=== PATIENT | female | born 1995 | race African-American/Black ===

== ENCOUNTER 2017-05-09 09:47 | Emergency (ER) | payer MEDICAID, OTHER ==
[~2017-05-09] VITALS: Ht 144.8 cm; Wt 52.1 kg
[2017-05-09] MEDS ORDERED: ACETAMINOPHEN 325MG TABLET ONE (10:50)
[2017-05-09] MEDS ORDERED: ACETAMINOPHEN 500MG TABLET PO ONE (12:45)
[2017-05-09 13:46] VITALS: BP 114/49
[2017-05-09 13:58] LABS: KETONES URINE NEGATIVE (NEGATIVE); LEUKOCYTE ESTERASE URINE TRACE (NEGATIVE); NITRITE URINE NEGATIVE (NEGATIVE); OCCULT BLOOD URINE TRACE (NEGATIVE); PROTEIN URINE TRACE (NEGATIVE); SPECIFIC GRAVITY URINE 1.017 (1.005-1.030)
[2017-05-09 14:03] LABS: CLARITY URINE CLEAR (CLEAR); COLOR URINE YELLOW (YELLOW)
== END 2017-05-09 14:58 | disposition home or self-care (01) ==
LOC: ER 10:51
DX: J06.9 Acute upper respiratory infection, unspecified (principal); I10 Essential (primary) hypertension
CPT/HCPCS: 81001; 81025; 87804; 99284

== ENCOUNTER 2017-07-15 07:09 | Emergency (ER) | payer MEDICAID, OTHER ==
[~2017-07-15] VITALS: Ht 157.5 cm; Wt 52.0 kg
[2017-07-15 07:53] VITALS: BP 120/73
[2017-07-15] MEDS ORDERED: IBUPROFEN 400MG TABLET PO ONE (08:00)
== END 2017-07-15 09:02 | disposition home or self-care (01) ==
LOC: ER 07:18
DX: S93.401A Sprain of unspecified ligament of right ankle, initial encounter (principal); X50.1XXA Overexertion from prolonged static or awkward postures, initial encounter; Y93.01 Activity, walking, marching and hiking; Y92.480 Sidewalk as the place of occurrence of the external cause; Y99.8 Other external cause status
CPT/HCPCS: 73610; 73630; 81025; 99284; Z7610